=== PATIENT | male | born 1960 | race Caucasian/White ===

== ENCOUNTER → 2021-11-24 | Outpatient (CLI) | payer OTHER, SELFPAY ==
--- NOTE | 2021-11-24 12:00 | EKG12_ITS ---
Test Reason : PREOP Blood Pressure : / mmHG Vent. Rate : 092 BPM Atrial Rate : 092 BPM P-R Int : 138 ms QRS Dur : 096 ms QT Int : 358 ms P-R-T Axes : 029 020 024 degrees QTc Int : 442 ms Normal sinus rhythm Normal ECG Confirmed by WILMER KANG, YARITZA ([id number]), map editor SUMEET ANGUIANO ([id number]) on 11/25/2021 7:39:13 AM Referred By: Pal Conner Confirmed By:YARITZA GUILLEN MD
== END | disposition home or self-care (01) ==
LOC: PSN 11:58
PROVIDERS: PCP Urology; Referring Provider Urology; Visit Provider Urology
DX: Z01.810 Encounter for preprocedural cardiovascular examination (principal)
CPT/HCPCS: 93005

== ENCOUNTER → 2021-12-29 | Outpatient (CLI) | payer OTHER, SELFPAY ==
[2022-01-06 11:32] LABS: Source Not Provided
== END | disposition home or self-care (01) ==
LOC: LAB 01-01 09:43
PROVIDERS: PCP Urology; Visit Provider Urology
DX: N20.1 Calculus of ureter (principal)
CPT/HCPCS: 82360